=== PATIENT | female | born 1955 | race Caucasian/White ===

== ENCOUNTER → 2019-12-21 | Outpatient (CLI) | payer MEDICARE, BC | END | disposition home or self-care (01) | LOC: LABWHC1 11:58 | PROVIDERS: ATTEND Internal Medicine Endocrinology, Diabetes & Metabolism | DX: E03.8 Other specified hypothyroidism (principal) | CPT/HCPCS: 36415; 84443 ==

== ENCOUNTER → 2022-01-13 | Outpatient (CLI) | payer MEDICARE, BC ==
[~2022-01-13] MED LIST: DENOSUMAB 60 MG/ML 1 ML SYRINGE SQ NR
[2022-01-13 12:45] VITALS: BP 150/70; PULSE 60; RESP 16; TEMP 98.2
== END ==
LOC: PROCWHC3 12:18
PROVIDERS: ATTEND Internal Medicine Endocrinology, Diabetes & Metabolism
DX: M81.0 Age-related osteoporosis without current pathological fracture (principal)
CPT/HCPCS: 96372; J0897

== ENCOUNTER → 2023-10-25 | Outpatient (CLI) | payer MEDICARE ==
[2023-10-25 19:59] LABS: ALT 20 U/L (8-44); AST 23 U/L (13-35); Albumin/Globulin Ratio 1.85 Ratio (1.60-3.17); Alkaline Phosphatase 57 U/L (41-126); BUN/Creat Ratio 10.44 Ratio (12.00-20.00); Blood Urea Nitrogen 9.4 mg/dL (9.0-27.0); Calcium 10.4 mg/dL (8.7-10.3); Carbon Dioxide 28.4 mmol/L (21.6-31.8); Chloride 101 mmol/L (96-109); Globulin 2.7 g/dL (1.6-3.3); Glucose 98 mg/dL (70-110); Potassium 4.5 mmol/L (3.5-5.5); Sodium 141 mmol/L (135-145); Total Bilirubin 0.8 mg/dL (0.3-1.2); Total Protein 7.7 g/dL (6.2-8.2)
== END | disposition home or self-care (01) ==
LOC: LABWHC1 10:51
PROVIDERS: ATTEND Internal Medicine Endocrinology, Diabetes & Metabolism
DX: M81.0 Age-related osteoporosis without current pathological fracture (principal)
CPT/HCPCS: 36415; 80053; 82306; 82523; 83970; 84443

== ENCOUNTER → 2024-11-29 | Outpatient (CLI) | payer MEDICARE, OTHER ==
[2024-11-29 10:13] LABS: Basophils # (A) 0.04 X 10*3/uL (0.00-0.10); Basophils % (A) 0.9 %; Eosinophils # (A) 0.12 X 10*3/uL (0.04-0.35); Eosinophils % (A) 2.8 %; HCT 41.9 % (37.2-46.3); Lymphocytes % (A) 28.1 %; MCH 29.4 pg (27.0-32.0); MCHC 33.4 g/dL (32.0-37.0); MCV 87.8 FL (80.0-97.0); Mean Platelet Volume 12.2 FL (9.5-12.2); Monocytes # (A) 0.33 X 10*3/uL (0.20-1.00); Monocytes % (A) 7.7 %; NRBC Per 100 WBC 0 X 10*3/uL (0.00-0.01); Neutrophils # (A) 2.57 X 10*3/uL (1.80-7.70); Neutrophils % (A) 60.3 %; Platelet Count 164 X 10*3/uL (140-440); RBC 4.77 X 10*6/uL (4.10-5.20); RDW 12.3 % (11.5-14.5); WBC 4.27 X 10*3/uL (4.50-10.00)
[2024-11-29 10:43] LABS: ALT 32 U/L (8-44); AST 29 U/L (13-35); Albumin 4.8 g/dL (3.8-4.9); Albumin/Globulin Ratio 1.78 Ratio (1.60-3.17); Alkaline Phosphatase 72 U/L (41-126); BUN/Creat Ratio 16.89 Ratio (12.00-20.00); Blood Urea Nitrogen 15.2 mg/dL (9.0-27.0); Calcium 10.1 mg/dL (8.7-10.3); Carbon Dioxide 25.7 mmol/L (21.6-31.8); Chloride 103 mmol/L (96-109); Chol/HDL Ratio 3.07 Ratio; Globulin 2.7 g/dL (1.6-3.3); Glucose 102 mg/dL (70-110); Potassium 4.4 mmol/L (3.5-5.5); Sodium 142 mmol/L (135-145); Total Bilirubin 0.9 mg/dL (0.3-1.2); Total Protein 7.5 g/dL (6.2-8.2); VLDL Calculation 17.54 mg/dL (5.00-40.00)
--- NOTE | 2024-11-29 13:13 | BD ---
EXAMINATION TYPE: Axial Bone Density DATE OF EXAM: 11/29/2024 CLINICAL HISTORY: 68 years old Female. ICD-10 CODE: Z78.0 POST MENOPAUSAL , Additional History: Height: 69 Weight: 150 FRAX RISK QUESTIONS: Family History (Parent hip fracture): yes History of Fracture in Adulthood: yes Secondary Osteoporosis: RISK FACTORS HISTORY OF: MEDICATIONS: Thyroid Medications: Which medication: Levothyroxine How Long: over 5 years Osteoporosis Medications: Which medication: Prolia How Lon-10 years EXAM MEASUREMENTS: Bone mineral densitometry was performed using the [employer] System. Bone mineral density as measured about the Lumbar spine is: ----- L1-L4(G/cm2): 1.104 T Score Values are as follows: ----- L1: -1.4 ----- L2: 0.1 ----- L3: -0.7 ----- L4: -0.7 ----- L1-L4: -0.6 Z Score Values are as follows: ----- L1: 0.1 ----- L2: 1.7 ----- L3: 0.9 ----- L4: 0.9 ----- L1-L4: 0.9 First dexa at [facility] Bone mineral density about the R hip (g/cm2): 0.823 Bone mineral density about the L hip (g/cm2): 0.829 T Score values are as follows: -----R Neck: -2.1 -----L Neck: -1.5 -----R Total: -1.5 -----L Total: -1.4 Z Score values are as follows: -----R Neck: -0.5 -----L Neck: 0.1 -----R Total: 0.0 -----L Total: 0.0 First dexa at [facility] FRAX%s: The graph provided illustrates a 29.0% chance for a major osteoporotic fx and a 9.8% chance f or the hips probability for fx in 10 years time. IMPRESSION: Osteopenia (T Score between -2.5 and -1). There is slightly increased risk of fracture and the patient may be considered for treatment. Re-Screen 2-5 years. NOTE: T-SCORE=SD OF THE YOUNG ADULT MEAN. [facility], , 11/29/2024 1:11 PM
--- NOTE | 2024-11-30 07:55 | MM ---
Reason for Exam: Screening (asymptomatic). Last mammogram was performed 1 year(s) and 9 month(s) ago. Patient History: Menarche at age 10. First Full-Term at age 20. Postmenopausal. Risk Values: Leyda 5 year model risk: 1.5%. NCI Lifetime model risk: 4.5%. Prior Study Comparison: 11/06/2020 Bilateral Screening Mammogram, [facility] . 02/25/2022 Bilateral Screening Mammogram, [facility] . 03/03/2023 Bilateral Screening Mammogram, [facility] . Tissue Density: The breasts are extremely dense, which lowers the sensitivity of mammography. Findings: Analyzed By CAD. Scattered benign oil cyst and vascular calcifications on either side. A microclip is present bilaterally related to prior biopsy. There is no suspicious group of microcalcifications or new suspicious mass in either breast. Overall Assessment: Benign, BI-RAD 2 Management: Screening Mammogram of both breasts in 1 year. Given patient's extremely dense breast tissue, consideration can be given to supplementary screening with breast ultrasound. Patient should continue monthly self-breast exams. A clinical breast exam by your physician is recommended on an annual basis. This exam should not preclude additional follow-up of suspicious palpable abnormalities. Note on Leyda scores and lifetime risk: 1. A Leyda score greater than 3% is considered moderate risk. If this is the case, consider specialist referral to assess eligibility for a risk reducing agent. 2. If overall lifetime risk for the development of breast cancer is 20% or higher, the patient may qualify for future screening with alternating mammogram and breast MRI. [facility], , 11/30/2024 7:52 AM. Electronically signed and approved by: Domitila Ayala M.D. Radiologist
== END | disposition home or self-care (01) ==
LOC: RADMAMWWP 07:27
PROVIDERS: ATTEND Family Medicine
DX: Z12.31 Encounter for screening mammogram for malignant neoplasm of breast (principal); M85.89 Other specified disorders of bone density and structure, multiple sites; E03.9 Hypothyroidism, unspecified; I10 Essential (primary) hypertension; R92.343 Mammographic extreme density, bilateral breasts; R92.1 Mammographic calcification found on diagnostic imaging of breast; Z78.0 Asymptomatic menopausal state
CPT/HCPCS: 77063; 77067; 77080; 80053; 80061; 82306; 83036; 84443; 85025

== ENCOUNTER → 2024-11-29 | Outpatient (CLI) | payer MEDICARE, OTHER ==
[2024-11-29 08:36] VITALS: BP 165/82; PULSE 55; RESP 16; TEMP 97.8
[2024-11-29] MEDS: DENOSUMAB 60 MG/ML 1 ML SYRINGE SQ NR (08:38)
== END ==
LOC: PROCWHC3 08:15
PROVIDERS: ATTEND Family Medicine
DX: M81.0 Age-related osteoporosis without current pathological fracture (principal)
CPT/HCPCS: 96372; J0897